=== PATIENT | male | born 1995 | race Caucasian/White ===

== ENCOUNTER 2019-07-12 23:40 | Emergency (ER) | payer BC ==
[~2019-07-12] VITALS: Ht 182.9 cm; Wt 77.1 kg
[2019-07-13 00:20] VITALS: BP 144/80
--- NOTE | 2019-07-13 00:42 | Emergency Room Report ---
History of Present Illness General Chief Complaint: Substance Abuse Source: Patient Present Illness HPI This is a 24-year-old male brought in by EMS from rehab center for agitation. He admits to using methamphetamine today. He was agitated and aggressive with other staff and members at the rehab center. Here patient refused to give any history to me. He refused to open his eyes. History is from EMS. On arrival he did complain of generalized body pain. Allergies: Coded Allergies: No Known Allergies (Unverified , 07/12/19) Patient History Past Medical History: see triage record, old chart reviewed Past Surgical History: other Family History: none Social History: drug use Immunizations: other Reviewed Nursing Documentation: PMH: Agreed; PSxH: Agreed Nursing Documentation-PMH Past Medical History: No History, Except For Review of Systems All Other Systems: limited - Patient is uncooperative Physical Exam Vital Signs Date Time Temp Pulse Resp B/P (MAP) Pulse Ox O2 Delivery O2 Flow Rate FiO2 07/12/19 23:44 99.9 150 16 150/78 (102) 98 Room Air Vitals with high blood pressure Sp02 EP Interpretation: reviewed, normal General Appearance: alert/responsive, no apparent distress, non-toxic Head: normocephalic, atraumatic Eyes: EOM grossly intact - On arrival, other - Now patient refused to open his eyes. When I try to open, he would squint very hard. ENT: oropharynx normal Neck: supple/symm/no masses Respiratory: effort normal, no rhonchi, no wheezing Cardiovascular: no murmur, gallop, rub Gastrointestinal: non-tender, no mass, non-distended, no rebound/guarding, normal bowel sounds Musculoskeletal: gait & station normal Neurologic: oriented x3, sensory intact, motor strength/tone normal, other - No focal deficits Skin: no rash, normal palpation Medical Decision Making Diagnostic Impression: Primary Impression: Substance abuse Additional Impression: Agitation ER Course Patient with agitation secondary to methamphetamine abuse. He has been stable here. He slept through the night. No suicidal thoughts homicidal thought. Will discharge home in the morning. This patient is a chronic risk of self injury due to poor impulse control, limited coping skills, and judgment intermittently impaired by intoxication. I believe that the available clinical evidence to suggest that these characteristics derived primarily from personality disorder and are likely very stable over time. Hospitalization would likely attenuate risk of self-harm only during fpc period, without lasting risk reduction. Serious self-harm , while possible, would likely be inadvertent, and because of impulsivity, and foreseeable. For these reasons, I do not believe hospitalization would provide meaningful reduction in risk of self-harm. Last Vital Signs Date Time Temp Pulse Resp B/P (MAP) Pulse Ox O2 Delivery O2 Flow Rate FiO2 07/12/19 23:44 99.9 150 16 150/78 (102) 98 Room Air Status: improved Disposition: HOME, SELF-CARE Condition: Stable Patient Instructions: Stimulant Use Disorder-Methamphetamines Additional Instructions: Stop abusing drugs. Continue with your rehab. Return if symptoms worsen. Follow-up with your doctor in 7 days. Kemal Davenport MD Jul 13, 2019 00:42
[2019-07-13 05:35] VITALS: BP 137/76
== END 2019-07-13 05:35 | disposition home or self-care (01) ==
LOC: EDBD 23:40 → EMR 07-13 00:36
DX: F15.10 Other stimulant abuse, uncomplicated (principal); R45.1 Restlessness and agitation
CPT/HCPCS: 99282

== ENCOUNTER 2020-02-05 17:15 | Emergency (ER) | payer BC ==
[~2020-02-05] VITALS: Ht 177.8 cm; Wt 77.1 kg
--- NOTE | 2020-02-05 17:18 | NUR ---
ED Nurse Note: [facility] a [facility] c/o OD. Per EMS, pt took meth, unk time and amount. Pt is cool to touch and diaphoretic. Unable to obtain information from the patient. Pt is awake and alert, calm but uncooperative. No SOB, on room air. Pt placed on equipment monitor phototypesetting. ERPA at bedside.
[2020-02-05 17:19] VITALS: BP 154/106
--- NOTE | 2020-02-05 17:19 | NUR ---
ED Nurse Note: [facility] address: [address] [place] [address] [place] [id number] Phone #: [phone]
[2020-02-05] MEDS ORDERED: DiphenhydrAMINE 50mg/ml Inj IM ONE (17:30)
--- NOTE | 2020-02-05 17:30 | Emergency Room Report ---
History of Present Illness General Chief Complaint: Overdose Source: Patient Present Illness HPI 25-year-old male with history of methamphetamine abuse brought in by paramedics coming from a rehab center. Patient reports that he used crystal meth and started feeling agitated. Denies any pain. Is alert and awake. Vital signs are within normal limits. Patient is a poor historian. Denies any alcohol intake and IV drug use. 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 Patient History Past Medical History: see triage record Past Surgical History: none Pertinent Family History: none Immunizations: UTD Reviewed Nursing Documentation: PMH: Agreed; PSxH: Agreed Nursing Documentation-PMH History Of Psychiatric Problem: Yes - substance abuse Review of Systems All Other Systems: negative except mentioned in HPI Physical Exam Vital Signs Date Time Temp Pulse Resp B/P (MAP) Pulse Ox O2 Delivery O2 Flow Rate FiO2 02/05/20 17:16 97.5 160 22 154/106 (122) 97 Room Air Sp02 EP Interpretation: reviewed, normal General Appearance: no apparent distress, alert, GCS 15, non-toxic Head: normocephalic, atraumatic Eyes: bilateral eye normal inspection, bilateral eye PERRL ENT: hearing grossly normal, normal pharynx, no angioedema, normal voice Neck: full range of motion, supple/symm/no masses Respiratory: chest non-tender, lungs clear, normal breath sounds, speaking full sentences Cardiovascular #1: regular rate, rhythm, no edema Gastrointestinal: normal bowel sounds, non tender, soft, non-distended, no guarding, no rebound Rectal: deferred Genitourinary: no CVA tenderness Musculoskeletal: back normal, no calf tenderness Neurologic: alert, motor strength/tone normal, oriented x3, sensory intact, responsive, speech normal Psychiatric: memory normal, anxious Skin: no rash Lymphatic: no adenopathy Medical Decision Making PA Attestation All diagnoses and treatment plans were reviewed and discussed with my supervising physician Dr. Almazan Diagnostic Impression: Primary Impression: Methamphetamine abuse ER Course 25-year-old male with history of methamphetamine abuse brought in by paramedics coming from a rehab center. Patient reports that he used crystal meth and started feeling agitated. Denies any pain. Is alert and awake. Vital signs are within normal limits. Patient is a poor historian. Denies any alcohol intake and IV drug use. Ddx considered but are not limited to: Alcohol intoxication with altered level of consciousness, methamphetamine abuse, cocaine abuse Vital signs: are WNL, pt. is afebrile H&PE are most consistent with: Methamphetamine abuse ORDERS: tox screen ER intervention: Nikki Smith DISCHARGE: At this time pt. is stable for d/c to home. Will provide printed patient care instructions, and any necessary prescriptions. Care plan and follow up instructions have been discussed with the patient prior to discharge. In order for patient to go back to rehab center needs to start by going to a detox center first. Patient was given list of places to follow-up with. Patient stable at time of discharge. Last Vital Signs Date Time Temp Pulse Resp B/P (MAP) Pulse Ox O2 Delivery O2 Flow Rate FiO2 02/05/20 17:16 97.5 160 22 154/106 (122) 97 Room Air Disposition: HOME, SELF-CARE Condition: Stable Patient Instructions: Stimulant Use Disorder-Methamphetamines Rosario Almanzar Feb 05, 2020 17:30
[2020-02-05] MEDS ORDERED: LORazepam Inj 2mg/ml 1ml ONE (17:52)
[2020-02-05] MEDS ORDERED: LORazepam Inj 2mg/ml 1ml IM ONE (18:00)
--- NOTE | 2020-02-05 18:20 | NUR ---
ED Nurse Note: Pt unable to provide urine sample at this time. ERPA aware.
--- NOTE | 2020-02-05 18:20 | NUR ---
Note lety in EDM - 02/05/20 at 1914 by SAMEER ED Nurse Note: Adolfo peguero to provide urine sample at this time. BENJAMIN cardozo.
--- NOTE | 2020-02-05 19:00 | NUR ---
ED Nurse Note: Report received from Darshana REA.
--- NOTE | 2020-02-05 19:10 | NUR ---
ED Nurse Note: Spoke to the patient and insisted the need to have an IV access. Patient refused
--- NOTE | 2020-02-05 19:25 | NUR ---
ED Nurse Note: Spoke to PEG (pts sister) on the phone and updated her regarding patients condition. Patient also spoke to sister. Place of discharge of patient also given to PEG
[2020-02-05 19:30] VITALS: BP 146/82
--- NOTE | 2020-02-05 19:35 | NUR ---
ED Nurse Note: Spoke to SEMAJ of [facility]. Semaj will provide transport for the patient going back to the facility. ETA 2030
--- NOTE | 2020-02-05 21:00 | NUR ---
ED Nurse Note: Spoke to Kevin(pts yacht rigger) personally and explained the treatment patient received and that the patient was refusing to have IV access upon arrival.
--- NOTE | 2020-02-05 21:05 | NUR ---
ED Nurse Note: Explained to Kevin that the pt is more relaxed right now compared to earlier. Stated that IM meds were given
[2020-02-05 21:30] VITALS: BP 141/92
--- NOTE | 2020-02-05 21:36 | NUR ---
ER DISCHARGE NOTE: Patient is cleared to be discharged per ERMD, pt is aox4, on room air, with stable vital signs. pt's product assembler ROLO was given dc instructions was able to verbalize understanding, pt id band removed. patient was accompanied outside via wheelchair and to a private4 vehicle. pt took all belongings.
[2020-02-05 21:45] VITALS: BP 141/92
== END 2020-02-05 21:30 | disposition home or self-care (01) ==
LOC: EDBD 17:15 → EDUNIT# 17:15 → EMR 18:13
DX: F15.10 Other stimulant abuse, uncomplicated (principal)
CPT/HCPCS: 96360; 96372; 99284; J1200